=== PATIENT | male | born 2000 | race Caucasian/White ===

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

== ENCOUNTER 2018-01-21 12:55 | Emergency (ER) | payer MEDICAID ==
[~2018-01-21] VITALS: Ht 188 cm; Wt 143.7 kg
[2018-01-21] MEDS ORDERED: ketorolac trometh inj. 60 MG/2 ML VIAL IM STA (14:30)
[2018-01-21] MEDS ORDERED: PRED20TA PO (14:45)
[2018-01-21] MEDS ORDERED: CYCL-1 PO (14:45)
[2018-01-21 15:31] VITALS: BP 147/76
== END 2018-01-21 15:36 | disposition home or self-care (01) ==
LOC: ER 12:55
DX: S33.5XXA Sprain of ligaments of lumbar spine, initial encounter (principal); Z79.899 Other long term (current) drug therapy; Z60.2 Problems related to living alone; X50.1XXA Overexertion from prolonged static or awkward postures, initial encounter; Y93.89 Activity, other specified; Y92.89 Other specified places as the place of occurrence of the external cause; Y99.8 Other external cause status
CPT/HCPCS: 96372; 99283; J1885